=== PATIENT | female | born 1955 | race Caucasian/White ===

== ENCOUNTER 2021-01-28 05:40 | Inpatient (IN) | payer MEDICARE, OTHER ==
[2021-01-28] MEDS ORDERED: Promethazine HCl 25 MG/ML VIAL ONE (06:04)
[2021-01-28 06:24] LABS: #Basophils 0.1 10x3/uL (0.0-0.2); #Eosinphils 0.1 10x3/uL (0.0-0.5); #Monocytes 1.1 10x3/uL (0.0-1.1); #Neutrophils 10.5 10x3/uL (1.5-8.4); %Basophils 0.9 % (0.0-2.0); %Eosinophils 0.5 % (0.0-6.0); %Lymphocytes 12.1 % (18.0-47.0); %Monocytes 7.9 % (0.0-10.0); %Neutrophils 77.5 % (40.0-75.0); Hemoglobin 16.9 g/dL (12.0-15.5); Mean Corpuscular HGB CONC 33.7 g/dL (32.0-36.0); Mean Corpuscular Volume 95.1 fl (81.6-98.3); Mean Platelet Volume 11.3 fl (7.4-10.4); Platelet Count 290 10x3/uL (150-450); RBC Distribution Width 13.2 % (11.5-14.5); Red Blood Cell (RBC) Count 5.28 10x6/uL (3.90-5.03); White Blood Cell (WBC) Count 13.6 10x3/uL (3.5-10.5)
[2021-01-28 06:40] LABS: ALT (SGPT) 45 U/L (8-55); AST (SGOT) 52 U/L (5-34); Albumin 4.9 g/dL (3.4-4.8); Alkaline Phosphatase 68 U/L (40-110); BUN (Urea Nitrogen) 18 mg/dL (9.8-20.1); Bilirubin, Total 0.4 mg/dL (0.2-1.2); Calc. Creatinine Clearance 0 mL/min (70-130); Calcium 9.7 mg/dL (7.8-10.44); Chloride 102 mmol/L (98-107); Glucose 260 mg/dL (80-115); Lipase 37 U/L (8-78); Magnesium 2.2 mg/dL (1.6-2.6); Potassium 3.5 mmol/L (3.5-5.1); Protein, Total 7.9 g/dL (5.8-8.1); Sodium 144 mmol/L (136-145)
[2021-01-28 07:11] LABS: Carbon Dioxide Less than 8 mmol/L (23-31)
[2021-01-28 07:17] LABS: Bilirubin Neg (Negative); Blood, Urine 10 (Negative); Glucose, Urine (Dipstick) >=1000 mg/dL (Negative); Ketone, Urine 150 mg/dL (Negative); Leukocyte Negative (Negative); Nitrite Negative (Negative); Protein, Urine (Dipstick) 30 mg/dl (Neg-Trace); Urobilinogen Normal mg/dL (Less than 2)
[2021-01-28 07:25] LABS: Clarity Clear (Clear)
[2021-01-28 07:28] LABS: Actual Bicarbonate (HCO3v) 7 mEq/L (22-28); Base Excess -22.3 mEq/L (-2.0 to +3.0); Calcium, Ionized (venous) 1.12 mmol/L (1.16-1.32); Chloride (VBG) 104 mmol/L (98-106); Hemoglobin (Hb) 16.5 g/dL (11.7-16.1); Potassium (VBG) 6.22 mmol/L (3.70-5.30); Puncture Site Other Site; pH (venous) 7.04 (7.32-7.43)
[2021-01-28 07:28] LABS: Bacteria/HPF 1+ HPF (None Seen); RBC/HPF 0-3 HPF (0-3); WBC/HPF None Seen HPF (0-3)
[2021-01-28] MEDS ORDERED: Cefepime 2 GM VIAL ONE (07:41)
[2021-01-28] MEDS ORDERED: INSULIN REGULAR IN 0.9 % NACL 100 UNIT/100 ML BAG ONE (07:42)
[2021-01-28] MEDS ORDERED: Potassium Chloride 20 MEQ/100 ML PREMIX BAG ONE (08:36)
[2021-01-28] MEDS ORDERED: Sodium Bicarb 50 MEQ/50 ML VIAL ONE ×2 (08:53)
[2021-01-28] MEDS ORDERED: D5 1/2 NS w/20 mEq KCL 1,000 ML IV PRN (09:08)
[2021-01-28] MEDS ORDERED: Dextrose 5 %-0.45 % NaCl 1,000 ML IV PRN (09:08)
[2021-01-28] MEDS ORDERED: Sodium Chloride 0.9% 1,000 ML IV PRN ×2 (09:08)
[2021-01-28] MEDS ORDERED: NS 0.9% w/ 20 MEQ KCL 1,000 ML IV PRN ×2 (09:08)
[2021-01-28] MEDS ORDERED: Electrolyte Replacement Protocol 1 EACH IVPB PRN (09:08)
[2021-01-28 09:54] LABS: Lactic Acid 3.8 mmol/L (0.5-2.2)
[2021-01-28 09:56] LABS: Anion Gap 31 mmol/L (10-20); BUN (Urea Nitrogen) 17 mg/dL (9.8-20.1); Calc. Creatinine Clearance 0 mL/min (70-130); Calcium 7.7 mg/dL (7.8-10.44); Chloride 113 mmol/L (98-107); Glucose 153 mg/dL (80-115); Magnesium 1.8 mg/dL (1.6-2.6); Phosphorus 3.7 mg/dL (2.3-4.7); Sodium 149 mmol/L (136-145)
[2021-01-28 10:06] LABS: Carbon Dioxide 8 mmol/L (23-31)
[2021-01-28 10:12] LABS: SARS-CoV-2 NAA Rapid Test Not Detected (NotDetected)
[2021-01-28 10:46] VITALS: BMI 22.8
[2021-01-28] MEDS: Potassium Chloride 20 MEQ in Premix Bag 1 BAG IVPB SCH ×4 (10:59→16:58)
[2021-01-28] MEDS ORDERED: Enoxaparin Sodium 40 MG/0.4 ML SYRINGE SC SCH (11:00)
[2021-01-28] MEDS ORDERED: INSULIN REGULAR IN 0.9 % NACL 100 UNIT in Premix Bag 1 BAG IVPB SCH (11:00)
[2021-01-28] MEDS ORDERED: Magnesium 2 GM/50 ML 2 GM in Premix Bag 1 BAG IVPB SCH ×2 (12:00→14:00)
[2021-01-28] MEDS ORDERED: Sodium Chloride 0.9% 250 ML 250 ML IVPB SCH (12:15)
[2021-01-28] MEDS ORDERED: Dextrose 5% in Water 250 ML IVPB SCH (12:15)
[2021-01-28] MEDS: Dextrose 5% in Water 1,000 ML IV SCH ×3 (12:30→20:25)
[2021-01-28] MEDS: Sodium Chloride 0.9% 1,000 ML IV SCH ×3 (12:30→20:08)
[2021-01-28 13:37] LABS: BUN (Urea Nitrogen) 14 mg/dL (9.8-20.1); Calc. Creatinine Clearance 56 mL/min (70-130); Calcium 7.6 mg/dL (7.8-10.44); Chloride 116 mmol/L (98-107); Glucose 161 mg/dL (80-115); Potassium 3.2 mmol/L (3.5-5.1); Sodium 143 mmol/L (136-145)
[2021-01-28 13:43] LABS: Carbon Dioxide Less than 8 mmol/L (23-31)
[2021-01-28] MEDS ORDERED: Sodium Bicarbonate 150 MEQ in Dextrose 5% in Water 1,000 ML IV SCH (14:15)
[2021-01-28] MEDS: Potassium Bicarbonate/Cit Ac 20 MEQ TAB PO SCH ×2 (14:51→16:54)
[2021-01-28] MEDS ORDERED: Sodium Bicarb 50 MEQ/50 ML VIAL IVP SCH ×2 (15:00)
[2021-01-28] MEDS: Sodium Bicarb 50 MEQ/50 ML VIAL IVP SCH ×3 (16:00→18:04)
[2021-01-28 17:51] LABS: Anion Gap 16 mmol/L (10-20); BUN (Urea Nitrogen) 10 mg/dL (9.8-20.1); Calc. Creatinine Clearance 65 mL/min (70-130); Calcium 7.4 mg/dL (7.8-10.44); Carbon Dioxide 18 mmol/L (23-31); Chloride 111 mmol/L (98-107); Glucose 140 mg/dL (80-115); Potassium 3.9 mmol/L (3.5-5.1); Sodium 141 mmol/L (136-145)
[2021-01-28] MEDS: Lantus 1000 UNITS/10 ML VIAL SC SCH (20:13)
[2021-01-28 21:16] LABS: Anion Gap 15 mmol/L (10-20); BUN (Urea Nitrogen) 7 mg/dL (9.8-20.1); Calc. Creatinine Clearance 68 mL/min (70-130); Carbon Dioxide 21 mmol/L (23-31); Chloride 107 mmol/L (98-107); Glucose 158 mg/dL (80-115); Potassium 3.9 mmol/L (3.5-5.1); Sodium 139 mmol/L (136-145)
[2021-01-28] MEDS ORDERED: Dextrose 5 %-0.45 % NaCl 1,000 ML IV SCH (21:30)
[2021-01-28] MEDS ORDERED: Sodium Chloride 0.9% 1,000 ML IV SCH (21:30)
[2021-01-28] MEDS ORDERED: Nitroglycerin 0.4 MG TAB (25 Tab Bottle) SL PRN (21:33)
[2021-01-28] MEDS ORDERED: Morphine 4 MG/ML VIAL SLOW IVP SCH (21:45)
[2021-01-28] MEDS ORDERED: Aspirin Chewable 81 MG TAB PO SCH (21:45)
[2021-01-28] MEDS ORDERED: Pantoprazole 40 MG VIAL IVP SCH (21:45)
[2021-01-28] MEDS ORDERED: Potassium Chloride 20 MEQ in Premix Bag 1 BAG IVPB SCH (22:00)
[2021-01-28 22:01] LABS: Troponin I 0.011 ng/mL (< 0.028)
[2021-01-28 22:06] LABS: Magnesium 1.9 mg/dL (1.6-2.6); Phosphorus Less than 1.0 mg/dL (2.3-4.7)
[2021-01-28] MEDS ORDERED: Sodium Phosphate 15 MMOL in Sodium Chloride 0.9% 250 ML 250 ML IVPB ONE (22:15)
[2021-01-28] MEDS: Calcium Gluconate 4.6 MEQ in Sodium Chloride 0.9% 100 ML IVPB SCH (22:24)
[2021-01-29] MEDS: Calcium Gluconate 4.6 MEQ in Sodium Chloride 0.9% 100 ML IVPB SCH (00:51)
[2021-01-29 01:34] LABS: Anion Gap 11 mmol/L (10-20); BUN (Urea Nitrogen) 5 mg/dL (9.8-20.1); Calc. Creatinine Clearance 75 mL/min (70-130); Calcium 7.6 mg/dL (7.8-10.44); Carbon Dioxide 24 mmol/L (23-31); Chloride 106 mmol/L (98-107); Glucose 97 mg/dL (80-115); Potassium 3.7 mmol/L (3.5-5.1); Sodium 137 mmol/L (136-145)
[2021-01-29 04:35] LABS: Anion Gap 12 mmol/L (10-20); BUN (Urea Nitrogen) 4 mg/dL (9.8-20.1); Calc. Creatinine Clearance 76 mL/min (70-130); Calcium 7.6 mg/dL (7.8-10.44); Carbon Dioxide 23 mmol/L (23-31); Chloride 107 mmol/L (98-107); Glucose 125 mg/dL (80-115); Magnesium 1.9 mg/dL (1.6-2.6); Potassium 3.7 mmol/L (3.5-5.1); Sodium 138 mmol/L (136-145)
[2021-01-29 04:53] LABS: #Monocytes 0.9 10x3/uL (0.0-1.1); #Neutrophils 5.1 10x3/uL (1.5-8.4); %Basophils 0.2 % (0.0-2.0); %Eosinophils 0.2 % (0.0-6.0); %Lymphocytes 8.5 % (18.0-47.0); %Neutrophils 77.8 % (40.0-75.0); Hemoglobin 11.3 g/dL (12.0-15.5); Mean Corpuscular HGB CONC 35.4 g/dL (32.0-36.0); Mean Corpuscular Hemoglobin 31.6 pg (27.0-33.0); Mean Corpuscular Volume 89.1 fl (81.6-98.3); Mean Platelet Volume 10.2 fl (7.4-10.4); Platelet Count 149 10x3/uL (150-450); RBC Distribution Width 12.9 % (11.5-14.5); Red Blood Cell (RBC) Count 3.58 10x6/uL (3.90-5.03); White Blood Cell (WBC) Count 6.6 10x3/uL (3.5-10.5)
[2021-01-29] MEDS ORDERED: Magnesium 2 GM/50 ML 2 GM in Premix Bag 1 BAG IVPB SCH (05:00)
[2021-01-29] MEDS ORDERED: Dextrose 50% Abboject 50 ML SYRINGE SLOW IVP PRN (05:01)
[2021-01-29] MEDS ORDERED: Dextrose 5% in Water 1,000 ML IV PRN (05:01)
[2021-01-29] MEDS ORDERED: 1/2 NS w/KCL 20 mEq 1,000 ML IV SCH (05:15)
[2021-01-29] MEDS: Hydrochlorothiazide 25 MG TAB PO SCH (08:35)
[2021-01-29] MEDS: Enoxaparin Sodium 40 MG/0.4 ML SYRINGE SC SCH (08:35)
[2021-01-29] MEDS: Losartan Potassium 50 MG TAB PO SCH (08:36)
[2021-01-29] MEDS ORDERED: Aspirin 81 mg Enteric Coated Tablet PO SCH (09:00)
[2021-01-29] MEDS ORDERED: Lantus 1000 UNITS/10 ML VIAL SC SCH (09:00)
[2021-01-29 09:13] LABS: Hemoglobin A1c 8.3 % (4.0-6.0)
[2021-01-29] MEDS: cefTRIAXone\\ROCEPHIN 1 GM in Sodium Chloride 0.9% 100 ML IVPB SCH (09:18)
[2021-01-29] MEDS: Azithromycin 500 MG in Sodium Chloride 0.9% 250 ML 250 ML IVPB SCH (09:19)
[2021-01-29 09:35] LABS: Anion Gap 16 mmol/L (10-20); BUN (Urea Nitrogen) Less than 4 mg/dL (9.8-20.1); Calc. Creatinine Clearance 75 mL/min (70-130); Calcium 7.7 mg/dL (7.8-10.44); Carbon Dioxide 19 mmol/L (23-31); Chloride 107 mmol/L (98-107); Glucose 178 mg/dL (80-115); Potassium 3.9 mmol/L (3.5-5.1); Sodium 138 mmol/L (136-145)
[2021-01-29] MEDS: HumaLOG 300 UNITS/3 ML VIAL SC PRN (11:48)
[2021-01-29 13:24] LABS: Anion Gap 14 mmol/L (10-20); BUN (Urea Nitrogen) Less than 4 mg/dL (9.8-20.1); Calc. Creatinine Clearance 74 mL/min (70-130); Carbon Dioxide 22 mmol/L (23-31); Chloride 105 mmol/L (98-107); Glucose 191 mg/dL (80-115); Potassium 3.3 mmol/L (3.5-5.1); Sodium 138 mmol/L (136-145)
[2021-01-29] MEDS: Potassium Chloride 20 MEQ in Premix Bag 1 BAG IVPB SCH ×2 (15:26→17:25)
[2021-01-29] MEDS ORDERED: Pantoprazole 40 MG VIAL IVP SCH (21:00)
[2021-01-29] MEDS: Lantus 1000 UNITS/10 ML VIAL SC SCH (21:28)
[2021-01-30] MEDS: HumaLOG 300 UNITS/3 ML VIAL SC PRN ×2 (00:17→09:46)
[2021-01-30 05:32] LABS: #Monocytes 0.5 10x3/uL (0.0-1.1); #Neutrophils 4.6 10x3/uL (1.5-8.4); %Basophils 0.2 % (0.0-2.0); %Eosinophils 0.2 % (0.0-6.0); %Lymphocytes 12.8 % (18.0-47.0); %Monocytes 8.7 % (0.0-10.0); %Neutrophils 77.8 % (40.0-75.0); Hemoglobin 12.5 g/dL (12.0-15.5); Mean Corpuscular HGB CONC 33.7 g/dL (32.0-36.0); Mean Corpuscular Hemoglobin 30.6 pg (27.0-33.0); Mean Corpuscular Volume 90.9 fl (81.6-98.3); Platelet Count 170 10x3/uL (150-450); RBC Distribution Width 13.2 % (11.5-14.5); Red Blood Cell (RBC) Count 4.08 10x6/uL (3.90-5.03); White Blood Cell (WBC) Count 5.9 10x3/uL (3.5-10.5)
[2021-01-30 05:45] LABS: Phosphorus 1.9 mg/dL (2.3-4.7)
[2021-01-30 05:51] LABS: Anion Gap 19 mmol/L (10-20); BUN (Urea Nitrogen) Less than 4 mg/dL (9.8-20.1); Calc. Creatinine Clearance 83 mL/min (70-130); Calcium 8.5 mg/dL (7.8-10.44); Carbon Dioxide 20 mmol/L (23-31); Chloride 106 mmol/L (98-107); Glucose 152 mg/dL (80-115); Potassium 3.5 mmol/L (3.5-5.1); Sodium 141 mmol/L (136-145)
[2021-01-30] MEDS ORDERED: Potassium Chloride 20 MEQ TAB PO SCH (06:30)
[2021-01-30] MEDS: PHOS-NAK 1 PKT PACK PO SCH ×2 (06:34→08:15)
[2021-01-30] MEDS: Enoxaparin Sodium 40 MG/0.4 ML SYRINGE SC SCH (08:14)
[2021-01-30] MEDS: Losartan Potassium 50 MG TAB PO SCH (08:14)
[2021-01-30] MEDS: Hydrochlorothiazide 25 MG TAB PO SCH (08:15)
[2021-01-30] MEDS: cefTRIAXone\\ROCEPHIN 1 GM in Sodium Chloride 0.9% 100 ML IVPB SCH (08:15)
[2021-01-30] MEDS: Azithromycin 500 MG in Sodium Chloride 0.9% 250 ML 250 ML IVPB SCH (09:41)
[2021-01-30 12:14] VITALS: BP 170/83; TEMP 97.9
== END 2021-01-30 13:10 | disposition home or self-care (01) | DRG 637 ==
LOC: CSHERS 05:40 → CSHIMCU 10:16 → CSHTELE 01-29 09:51 → CSHIMCU 01-29 09:54 → CSHTELE 01-29 11:16
PROVIDERS: ADMIT Hospitalist; ATTEND Family Medicine
DX: E11.10 Type 2 diabetes mellitus with ketoacidosis without coma (principal); J15.9 Unspecified bacterial pneumonia; Z20.822 Contact with and (suspected) exposure to COVID-19; I10 Essential (primary) hypertension; R19.7 Diarrhea, unspecified; E87.6 Hypokalemia; E03.9 Hypothyroidism, unspecified; M81.0 Age-related osteoporosis without current pathological fracture; Z79.4 Long term (current) use of insulin; Z79.84 Long term (current) use of oral hypoglycemic drugs; Z79.890 Hormone replacement therapy; Z79.899 Other long term (current) drug therapy
CPT/HCPCS: 36415; 36416; 71045; 80048; 80053; 81003; 81015; 82010; 82805; 83036; 83605; 83690; 83735; 83930; 84100; 84443; 84484; 85025; 87040; 87086; 93005; 93010; C9113; J0456; J0610; J0692; J0696; J1650; J1815; J2270; J2550; J3370; J3475; J3480; J3490; J7042; J7050; J7070; U0002